=== PATIENT | female | born 1965 | race Hispanic/Latino ===

== ENCOUNTER 2019-05-18 09:23 | Inpatient (IN) | payer SELFPAY ==
[2019-05-18] MEDS ORDERED: Morphine 4 MG/ML VIAL ONE (09:54)
[2019-05-18] MEDS ORDERED: Ondansetron PF 4 MG/2 ML Vial ONE ×2 (09:54→16:29)
[2019-05-18 09:58] LABS: #Basophils 0.1 thou/uL (0.0-0.2); #Eosinphils 0.2 thou/uL (0.0-0.7); #Lymphocytes 2.6 thou/uL (1.20-3.40); #Neutrophils 8.1 thou/uL (1.40-6.50); %Basophils 0.6 % (0.0-1.0); %Eosinophils 1.8 % (0.0-10.0); %Lymphocytes 21.5 % (21.0-51.0); %Neutrophils 68.1 % (42.0-75.0); Mean Corpuscular Hemoglobin 28.8 pg (27.0-31.0); Mean Corpuscular Volume 87.2 fL (78.0-98.0); Mean Platelet Volume 7.9 fL (7.4-10.4); Platelet Count 343 thou/uL (130-400); RBC Distribution Width 12.1 % (11.5-14.5); Red Blood Cell (RBC) Count 4.16 mill/uL (4.20-5.40); White Blood Cell (WBC) Count 11.9 thou/uL (4.8-10.8)
[2019-05-18 10:12] LABS: ALT (SGPT) 27 U/L (8-55); AST (SGOT) 30 U/L (5-34); Albumin 3.5 g/dL (3.5-5.0); Alkaline Phosphatase 82 U/L (40-150); Anion Gap 15 mmol/L (10-20); BUN (Urea Nitrogen) 22 mg/dL (9.8-20.1); Bilirubin, Total 0.4 mg/dL (0.2-1.2); Calc. Creatinine Clearance 0 mL/min (70-130); Calcium 8.8 mg/dL (7.8-10.44); Carbon Dioxide 21 mmol/L (22-29); Chloride 106 mmol/L (98-107); Estimated GFR-MDRD 63; Globulin 3.7 g/dL (2.4-3.5); Glucose 108 mg/dL (70-105); Lipase 9 U/L (8-78); Potassium 3.9 mmol/L (3.5-5.1); Protein, Total 7.2 g/dL (6.0-8.3); Sodium 138 mmol/L (136-145)
[2019-05-18 10:49] LABS: Bacteria/HPF None Seen HPF (None Seen); Bilirubin Negative (Negative); Blood, Urine Negative (Negative); Clarity Clear (Clear); Glucose, Urine (Dipstick) Normal (Negative); Leukocyte 75 Leu/uL (Negative); Mucous/LPF Rare LPF (<2+); Nitrite Negative (Negative); Protein, Urine (Dipstick) 20 mg/dL (Neg-Trace); Squamous Epithelial 0-3 HPF (0-3); Urobilinogen Normal mg/dL (Less than 2)
--- NOTE | 2019-05-18 11:23 | CT ---
CT ABDOMEN PELVIS WITH ORAL AND IV CONTRAST: HISTORY: Right lower quadrant pain and diarrhea FINDINGS: There are minimal dependent changes at the lung bases. The patient is post cholecystectomy. The liver , spleen, pancreas, adrenal glands and right kidney appear normal. There is a cyst in the left kidney. There is free air in the abdomen and pelvis. The small bowel loops are not abnormally dilated. There is thickening of the sigmoid colon and adjacent small bowel loops with a 7.5 x 2.8 x 4.5 cm air-fluid collection between the two, consistent with abscess formation. This is not amenable to CT-g uided percutaneous drainage. The uterus is present. There is no evidence of aneurysmal dilatation of the abdominal Doppler. There are mild degenerative changes in the spine. IMPRESSION: Diverticulitis with abscess formation. Discussed over the telephone with YOLANDA Issa in the emergency room at 11:15 AM
[2019-05-18] MEDS ORDERED: Sodium Chloride 0.9% 100 ML ONE (11:32)
[2019-05-18] MEDS ORDERED: cefTRIAXone\\ROCEPHIN 2 GM VIAL ONE (11:32)
[2019-05-18] MEDS ORDERED: metroNIDAZOLE 500 MG/100 ML BAG ONE (11:32)
[2019-05-18] MEDS ORDERED: Ondansetron PF 4 MG/2 ML Vial IVP PRN (13:21)
[2019-05-18] MEDS ORDERED: Morphine 4 MG/ML VIAL SLOW IVP PRN (13:21)
[2019-05-18] MEDS ORDERED: Lorazepam 2 MG/ML VIAL SLOW IVP PRN (13:21)
[2019-05-18] MEDS ORDERED: hydrALAZINE 20 MG/ML VIAL SLOW IVP PRN (13:21)
[2019-05-18] MEDS ORDERED: Acetaminophen 1,000 MG in Premix Bag 1 BAG IVPB PRN (13:24)
[2019-05-18] MEDS ORDERED: Ketorolac Tromethamine 30 MG/ML VIAL IVP SCH (13:30)
[2019-05-18] MEDS ORDERED: Acetaminophen 1,000 MG in Premix Bag 1 BAG IVPB SCH (13:30)
--- NOTE | 2019-05-18 13:47 | HP ---
HISTORY OF PRESENT ILLNESS: Alma Moore is a 53-year-old female who lives in [place], [place]. In [place], about 4 to 5 weeks ago, she experienced onset of left lower quadrant lower abdominal pain, was seen by a physician and was started on antibiotics for diverticulitis. She states that pain resolved after that course of antibiotics. Her diet was not altered during that treatment as an outpatient. She then visited [place] and while in [place], experienced recurrent onset of abdominal pain 5 days ago and she was prescribed antibiotics again. The pain persisted and as she was visiting her family here in this area, she presents to the emergency room for evaluation. White count is 11.9, hemoglobin 12. Basic metabolic profile essentially normal. CAT scan of the abdomen and pelvis reveals changes consistent with a diverticular abscess, not amenable to percutaneous drainage. This abscess measures 7.5 x 2.8 x 4.5 cm. ALLERGIES: NONE. SOCIAL HISTORY: Tobacco, none. Alcohol, none. MEDICATIONS: Antihypertensive and medication for cholesterol that has been given by the nurses and not available to me. PAST SURGICAL HISTORY: Laparoscopic cholecystectomy. The patient is on disability for a knee injury sustained during work, has not worked in several years. REVIEW OF SYSTEMS: Ten-point, noncontributory. No cardiac history. No pulmonary history. PHYSICAL EXAMINATION: VITAL SIGNS: Blood pressure 120/68, heart rate 68, respiratory rate 18. HEAD EARS EYES, NOSE, and THROAT: Unremarkable. Sclerae nonicteric. SKIN: Nonjaundiced. NEUROLOGICAL: Intact. No deficit. NECK: Carotids are palpable without bruits. LYMPH: No lymphadenopathy in neck, axilla, or groins. LUNGS: Clear to auscultation. CARDIAC: Regular rate and rhythm without murmur or gallop. ABDOMEN: Soft. Nondistended. Tenderness in her left lower quadrant and midline lower abdomen with mild guarding. EXTREMITIES: Unremarkable. ASSESSMENT AND PLAN: Diverticulitis with abscess, not amenable to percutaneous drainage. I have recommended a diagnostic laparoscopy with laparoscopic drainage of abscess and drain, possible open procedure with colon resection and colostomy. She understands that laparoscopy may not be successful and in the next week, she may need conversion to an open. She understands risks and benefits and consents to procedure as indicated. Job ID: [id number]
[2019-05-18 14:23] VITALS: BMI 25.5
[2019-05-18] MEDS: Sodium Chloride 0.9% 1,000 ML IV SCH ×3 (15:35→23:56)
[2019-05-18] MEDS ORDERED: Iopamidol 370 76% 50 ML VIAL FS ONE (16:17)
[2019-05-18] MEDS ORDERED: ISOVUE-370 76%-LOCM 1 ML ONE (16:17)
[2019-05-18] MEDS ORDERED: ePHEDrine 50 MG/ML VIAL ONE (16:29)
[2019-05-18] MEDS ORDERED: Lidocaine 1% PF 5 ML VIAL ONE (16:29)
[2019-05-18] MEDS ORDERED: PROPOFOL 200 MG/20 ML VIAL ONE (16:29)
[2019-05-18] MEDS ORDERED: Rocuronium Bromide 10 MG/ML (10ML VIAL) ONE (16:29)
[2019-05-18] MEDS ORDERED: Succinylcholine Chloride 20 MG/ML 10 ml SYRINGE FS ONE (16:29)
[2019-05-18] MEDS ORDERED: Dexamethasone 20 MG/5 ML VIAL ONE (16:29)
[2019-05-18] MEDS: Piperacillin/Tazobactam 4.5 GM in Sodium Chloride 0.9% 100 ML IVPB SCH ×2 (18:32→23:55)
[2019-05-18] MEDS ORDERED: Bupivacaine PF 0.5% 30 ML VIAL ONE (20:29)
[2019-05-18] MEDS ORDERED: Bupivacaine HCl 0.5%/Epinephrine 1:200,000/PF 30 ml Vial ONE (20:29)
[2019-05-18] MEDS ORDERED: Fentanyl 100 MCG/2 ML VIAL ONE ×2 (20:38→22:19)
[2019-05-18] MEDS ORDERED: SUGAMMADEX SODIUM 500 MG/5 ML VIAL ONE (21:33)
[2019-05-18] MEDS ORDERED: Morphine Sulfate 2 MG/ML SYRINGE SLOW IVP PRN (21:54)
[2019-05-18] MEDS ORDERED: HYDROmorphone 2 MG/ML VIAL SLOW IVP PRN (21:54)
[2019-05-18] MEDS ORDERED: Meperidine HCl/PF 25 MG/ML VIAL SLOW IVP PRN (21:54)
[2019-05-18] MEDS ORDERED: Ondansetron HCl/PF 4 MG/2 ML Vial IVP PRN (21:54)
[2019-05-18] MEDS ORDERED: Promethazine HCl 25 MG/ML VIAL SLOW IVP PRN (21:54)
[2019-05-18] MEDS ORDERED: Promethazine HCl 25 MG/ML VIAL IM PRN (21:54)
[2019-05-18] MEDS ORDERED: PACU-Morphine 4MG/ML VIAL SLOW IVP PRN (21:54)
[2019-05-18] MEDS ORDERED: Ketorolac Tromethamine 30 MG/ML VIAL IVP PRN (21:54)
--- NOTE | 2019-05-18 23:27 | OP ---
DATE OF PROCEDURE: 05/18/2019 PREOPERATIVE DIAGNOSIS: Diverticular abscess, not amenable to percutaneous CT-guided drainage. POSTOPERATIVE DIAGNOSIS: Diverticular abscess, not amenable to percutaneous CT-guided drainage. PROCEDURE PERFORMED: Laparoscopic drainage of diverticular abscess. ANESTHESIA: General 19 gold KATEY drain, local 0.5% Marcaine with epinephrine 30 mL. DESCRIPTION OF PROCEDURE: The patient was taken to the operating room, where under general anesthesia, abdomen was prepared with ChloraPrep and draped in routine fashion. [place] catheter was placed at the beginning of the procedure and removed at the end. Right lateral subcostal incision was made and pneumoperitoneum to 15 mmHg was obtained with a Veress needle, replaced with a 5 port laparoscope inserted. Right mid upper abdominal incision was made and a 5 port placed. Right lower quadrant incision was made and a 5 port placed, remainder of ports placed under laparoscopic visualization, there was inflammatory process of the anterior abdominal wall inferiorly to the left. Using blunt dissection, this was taken down and purulent material evacuated. There was an abscess cavity as described by CAT scan. There was integrated segment of sigmoid. This was taken down and irrigated. No feculent material was noted, only yellow purulent material. This was thoroughly irrigated, irrigant evacuated. A 19 gold KATEY drain placed through the right lower quadrant port site, secured with 3-0 nylon suture, tailored to length. Abdominal cavity irrigated, irrigant evacuated, pneumoperitoneum evacuated. All instruments were removed. All skin incisions were approximated with interrupted subdermal 4-0 Monocryl and [place] glue applied. Job ID: [id number]
[2019-05-18] MEDS: Enoxaparin Sodium 40 MG/0.4 ML SYRINGE SC SCH (23:55)
[2019-05-19] MEDS: Ketorolac Tromethamine 30 MG/ML VIAL IVP PRN ×3 (05:27→17:23)
[2019-05-19] MEDS: Piperacillin/Tazobactam 4.5 GM in Sodium Chloride 0.9% 100 ML IVPB SCH ×3 (05:27→17:22)
[2019-05-19 06:42] LABS: #Lymphocytes 1.6 thou/uL (1.20-3.40); #Monocytes 0.7 thou/uL (0.11-0.59); #Neutrophils 8.4 thou/uL (1.40-6.50); %Basophils 0.1 % (0.0-1.0); %Eosinophils 0.3 % (0.0-10.0); %Lymphocytes 14.6 % (21.0-51.0); %Monocytes 6.5 % (0.0-10.0); %Neutrophils 78.5 % (42.0-75.0); Hemoglobin 10.4 g/dL (12.0-16.0); Mean Corpuscular HGB CONC 32.8 g/dL (32.0-36.0); Mean Corpuscular Hemoglobin 29.3 pg (27.0-31.0); Mean Corpuscular Volume 89.4 fL (78.0-98.0); Mean Platelet Volume 7.4 fL (7.4-10.4); Platelet Count 315 thou/uL (130-400); RBC Distribution Width 12.1 % (11.5-14.5); Red Blood Cell (RBC) Count 3.53 mill/uL (4.20-5.40); White Blood Cell (WBC) Count 10.7 thou/uL (4.8-10.8)
[2019-05-19 07:03] LABS: Anion Gap 11 mmol/L (10-20); BUN (Urea Nitrogen) 9 mg/dL (9.8-20.1); Calc. Creatinine Clearance 92 mL/min (70-130); Calcium 8.1 mg/dL (7.8-10.44); Carbon Dioxide 21 mmol/L (22-29); Chloride 106 mmol/L (98-107); Estimated GFR-MDRD 81; Glucose 130 mg/dL (70-105); Potassium 3.2 mmol/L (3.5-5.1); Sodium 135 mmol/L (136-145)
[2019-05-19] MEDS: Sodium Chloride 0.9% 1,000 ML IV SCH ×3 (07:28→18:00)
[2019-05-19] MEDS ORDERED: traMADol HCl 50 MG TAB PO PRN (17:25)
--- NOTE | 2019-05-19 18:16 | PRG ---
DATE OF SERVICE: SUBJECTIVE: Alma Moore is doing well today. She feels much better. Her pain is less. She has had a laparoscopic drainage of perineal abscess. OBJECTIVE: VITAL SIGNS: Temperature 97.9 degrees, pulse 91, and blood pressure 134/83. LUNGS: Clear to auscultation. CARDIAC: Regular rate and rhythm without murmur or gallop. ABDOMEN: Soft. Good bowel sounds. Laparoscopic wounds well healed. Drained serosanguineous. Drainage has not been recorded. LABORATORY DATA: This morning, her white count is 10 and hemoglobin 10.4. ASSESSMENT AND PLAN: Diverticular abscess, status post laparoscopic drainage. Continue IV antibiotics. Initiate full liquids. Anticipate discharge home in 48 to 72 hours on p.o. antibiotics and follow up [place]. Expect to remove her drain prior to discharge. Job ID: [id number]
[2019-05-19] MEDS: traMADol HCl 50 MG TAB PO PRN (21:04)
[2019-05-19] MEDS: Enoxaparin Sodium 40 MG/0.4 ML SYRINGE SC SCH (21:05)
[2019-05-20] MEDS: Piperacillin/Tazobactam 4.5 GM in Sodium Chloride 0.9% 100 ML IVPB SCH ×4 (00:48→18:07)
[2019-05-20] MEDS: traMADol HCl 50 MG TAB PO PRN ×2 (05:42→06:20)
[2019-05-20] MEDS: Acetaminophen 500 MG TAB PO PRN ×2 (10:27→21:58)
[2019-05-20] MEDS: Polyethylene Glycol 3350 17 GM Packet PO SCH (10:27)
[2019-05-20] MEDS: Sodium Chloride 0.9% 1,000 ML IV SCH (13:22)
[2019-05-20] MEDS: Ibuprofen 600 MG TAB PO PRN ×2 (15:03→21:58)
[2019-05-20] MEDS: Enoxaparin Sodium 40 MG/0.4 ML SYRINGE SC SCH (20:34)
--- NOTE | 2019-05-20 22:03 | PRG ---
DATE OF SERVICE: 05/20/2019 SUBJECTIVE: Ms. Moore is status post laparoscopic drainage of diverticular abscess. She has no complaints. She notes her pain is better. She is tolerating liquid diet. She has had a couple of bowel movements. Her drain is in place and drained 80 mL yesterday. The appearance currently is more or less serosanguineous. She is voiding and walking. PHYSICAL EXAMINATION: VITAL SIGNS: She is afebrile. Vital signs are normal. LUNGS: Clear to auscultation. ABDOMEN: Has normoactive bowel sounds. It is soft and nontender except at the drain site. ASSESSMENT AND PLAN: She is stable. She is currently receiving Zosyn. I suspect that tomorrow her antibiotics can be changed to oral antibiotics and the drain could be removed and she could be discharged home. Dr. Bradley will arrange that. Job ID: [id number]
[2019-05-21] MEDS: traMADol HCl 50 MG TAB PO PRN ×3 (00:04→17:30)
[2019-05-21] MEDS: Piperacillin/Tazobactam 4.5 GM in Sodium Chloride 0.9% 100 ML IVPB SCH ×4 (05:16→17:32)
[2019-05-21] MEDS: Ibuprofen 600 MG TAB PO PRN ×2 (05:53→20:58)
[2019-05-21] MEDS: Acetaminophen 500 MG TAB PO PRN ×2 (08:29→20:58)
[2019-05-21] MEDS: Polyethylene Glycol 3350 17 GM Packet PO SCH (08:35)
--- NOTE | 2019-05-21 10:23 | PRG ---
DATE OF SERVICE: 05/21/2019 SUBJECTIVE: Ms. Moore is doing well today. She is complaining of pain in her KATEY drain site. The KATEY drain has only put out 20 mL of serosanguineous fluid in the last 24 hours. She is tolerating her diet. She has passed flatus. She complains of pain in the laparoscopic site. She does complain of lower pelvic pain when she goes to the bathroom. Otherwise, she is doing well. She has been walking well. OBJECTIVE: VITAL SIGNS: 98.1, 60, 128/83. LUNGS: Clear to auscultation. CARDIAC: Regular rate and rhythm without murmur or gallop. ABDOMEN: Soft. Postoperative tenderness. KATEY site serosanguineous. ASSESSMENT AND PLAN: Diverticular abscess, status post laparoscopic drainage. Continue low-fiber soft diet for 2 to 3 weeks, transition to high-fiber diet after 2 to 3 weeks. Avoid salads, fruits, and vegetables in the first 2 to 3 weeks. Eat soft foods. We will plan discharge home tomorrow, Saturday on oral antibiotics. Continue intravenous antibiotics today and advance diet to a low-fiber soft diet. She will need a colonoscopy in the next 3 months. If she continues to have pain, recurrent problems, or intractable pain, she may need elective laparoscopic sigmoid colon resection. She is flying to [place] over the weekend. I have told her to safe to travel and fly. Job ID: [id number]
[2019-05-21] MEDS: Enoxaparin Sodium 40 MG/0.4 ML SYRINGE SC SCH (20:57)
[2019-05-22] MEDS: Piperacillin/Tazobactam 4.5 GM in Sodium Chloride 0.9% 100 ML IVPB SCH ×2 (00:19→05:32)
[2019-05-22] MEDS: Acetaminophen 500 MG TAB PO PRN (06:09)
[2019-05-22] MEDS: Ibuprofen 600 MG TAB PO PRN (06:09)
[2019-05-22] MEDS ORDERED: Amoxicillin/Potassium Clav 875 MG TAB PO SCH (08:00)
[2019-05-22] MEDS: Polyethylene Glycol 3350 17 GM Packet PO SCH ×2 (09:37→09:38)
[2019-05-22 11:47] VITALS: BP 119/77; TEMP 97.5
--- NOTE | 2019-05-22 19:55 | DIS ---
DATE OF ADMISSION: 05/18/2019 DATE OF DISCHARGE: 05/22/2019 Alma Moore is a 53-year-old female, being treated for diverticulitis in [place]. She got over that episode after a course of oral antibiotics, treated as an outpatient. She subsequently went to [place] to visit family and then experienced a repeat episode of diverticulitis with lower abdominal discomfort, lower midline, and left lower quadrant. She received oral antibiotics in [place], then visited [facility] to visit family and presented in the emergency room because of worsening symptoms. The patient was admitted on 05/18/2019, discharged on 05/22/2019. DISCHARGE DIAGNOSIS: Diverticular abscess. CAT scan revealed diverticular abscess. Hemodynamically stable. Normal white count of 12,000. The patient underwent laparoscopic drainage of this abscess that was not amenable to CT-guided drainage. This is 8 x 4 x 3 cm. This was just around the anterior abdominal wall and sigmoid colon. This yellow purulent material was drained. There was no evidence of feculent drainage. Area irrigated. KATEY drain left in place, removed 48 hours later as it drained only serosanguineous. She was kept on Zosyn IV until the day of discharge and changed to Augmentin. She was sent home with instructions to be on a low-fiber diet for 2 to 3 weeks, then high-fiber. She was given Augmentin for 10 days, 875 p.o. b.i.d. She is to follow up with her primary care doctor. A physician in [place] was recommended she will have a colonoscopy in the next 8 to 12 weeks. She was told that she does not need surgical resection unless she has continued pain, recurrent pain, or complication of diverticulitis again. At this point, I will see her in the office if she is in town, otherwise, she will be followed up with her physicians in [place]. Job ID: [id number]
== END 2019-05-22 15:05 | disposition home or self-care (01) | DRG 392 ==
LOC: ERS 09:23 → SURG B 11:31
PROVIDERS: ADMIT Specialist; ATTEND Specialist
PROC: 0W9F40Z Drainage of Abdominal Wall with Drainage Device, Percutaneous Endoscopic Approach (ICD-10-PCS; principal; 2019-05-18)
DX: K57.20 Diverticulitis of large intestine with perforation and abscess without bleeding (principal); I10 Essential (primary) hypertension; E78.5 Hyperlipidemia, unspecified; Z90.49 Acquired absence of other specified parts of digestive tract; Z79.899 Other long term (current) drug therapy
CPT/HCPCS: 36415; 74177; 80048; 80053; 81003; 81015; 83605; 83690; 85025; 87040; 93005; 96361; 96365; 96367; 96375; J0131; J0670; J0696; J1100; J1650; J1885; J2001; J2270; J2405; J2543; J2704; J3010; J3490; Q9966; Q9967; S0020